=== PATIENT | female | born 2000 | race Caucasian/White ===

== ENCOUNTER 2020-09-16 20:05 | Emergency (ER) | payer MEDICAID, SELFPAY ==
[~2020-09-16] VITALS: Ht 157.5 cm; Wt 68.0 kg
[2020-09-16 20:42] VITALS: BP_SYST 134
--- NOTE | 2020-09-16 20:42 | NUR ---
Pt cough, fever and body aches x 1 day. Took tylenol at 1800 hrs. Pt is 18 weeks , G1, P0, LMP 04/27/2020. Pt had a positive Covid test on 09/10/2020. Patient symptoms have not been worsening, was prompted to come to the ED secondary to persistent symptoms. Denied any abdominal pain or cramping, vaginal bleeding or discharge, denies urinary symptoms. Denied nausea, vomiting, diarrhea. Denied chest pain, cough, shortness of breath, palpitations. Pt breathing easy, unlabored. Pt ambulatory with ambulatory gait.
--- NOTE | 2020-09-16 20:48 | NUR ---
REBECCA Mchugh in the tent examining patient.
[2020-09-16 20:55] VITALS: BP_SYST 132
--- NOTE | 2020-09-16 20:55 | NUR ---
Patient given written and verbal discharge instructions by Dr Templeton and verbalizes understanding. ER MD discussed with patient the care provided. Patient in stable condition. ID arm band removed. Rx of Azithromycin 500 mg and Dexamethasone given. Patient educated on pain management and to follow up with PMD by Dr Templeton. Pain Scale 0/10. Opportunity for questions provided and answered.
== END 2020-09-16 20:55 | disposition home or self-care (01) ==
LOC: SED 20:05
DX: O26.892 Other specified pregnancy related conditions, second trimester (principal); U07.1 COVID-19; Z3A.18 18 weeks gestation of pregnancy
CPT/HCPCS: 99283

== ENCOUNTER 2020-09-18 16:59 | Emergency (ER) | payer MEDICAID, SELFPAY ==
[~2020-09-18] VITALS: Ht 157.5 cm; Wt 114.3 kg
--- NOTE | 2020-09-18 17:00 | NUR ---
Patient triaged and placed in waiting room. VSS and patient appears in no acute distress at this time. Accompanied by self , awaiting available bed, and MD notified of need for MSE.
--- NOTE | 2020-09-18 17:10 | NUR ---
Pt brought by self, A&Ox4, pt presents to ER with abdominal pain/nausea after taking dexamethasone and azythromycin for covid, pt also c/o episod eof vaginal bleeding yesterday, skin pink and warm, respirations even and unlabored, cap refill <3.
[2020-09-18 17:18] VITALS: BP_SYST 158
--- NOTE | 2020-09-18 17:24 | NUR ---
Dr Arreguin evaluating patient in the tent
--- NOTE | 2020-09-18 17:45 | NUR ---
[facility] notified ,pt needs ultrasound
[2020-09-18 17:51] LABS: BASOPHILS % (AUTO) 0.2 % (0.0-2.0); EOSINOPHILS % (AUTO) 0.2 % (0.0-4.0); HEMATOCRIT 41.5 % (36-48); HEMOGLOBIN 14.1 g/dL (12.0-16.0); LYMPHOCYTES % (AUTO) 15.5 % (20.5-51.5); MEAN CORPUSCULAR HEMOGLOBIN 32 pg (27-31); MEAN CORPUSCULAR HGB CONC 34 % (32-36); MEAN CORPUSCULAR VOLUME 95 fL (79.0-98.0); MONOCYTES # (AUTO) 0.4 K/uL (0.0-1.0); MONOCYTES % (AUTO) 6.9 % (1.7-9.3); NEUTROPHILS # (AUTO) 4.8 K/uL (1.8-7.7); NEUTROPHILS % (AUTO) 77.2 % (40.0-70.0); PLATELET COUNT (AUTO) 301 K/uL (130-430); RED BLOOD CELL COUNT(AUTO) 4.37 MIL/uL (4.2-6.2); RED CELL DISTRIBUTION WIDTH 13.4 % (9.0-15.0); WHITE BLOOD COUNT (AUTO) 6.2 K/uL (4.8-10.8)
--- NOTE | 2020-09-18 18:00 | NUR ---
Urine sample sent to lab as per MD order.
[2020-09-18 18:33] LABS: CREATININE 0.61 mg/dL (0.55-1.30)
[2020-09-18 18:37] LABS: BILIRUBIN,URINE NEGATIVE (NEGATIVE); BLOOD, URINE 2+ (NEGATIVE); CLARITY/URINE SL CLOUDY (CLEAR); COLOR,URINE YELLOW (YELLOW); GLUCOSE,URINE NEGATIVE (NEGATIVE); KETONES,URINE NEGATIVE (NEGATIVE); LEUKOCYTE ESTERASE ,URINE 2+ (NEGATIVE); NITRITE, URINE NEGATIVE (NEGATIVE); PROTEIN URINE TRACE (NEGATIVE)
[2020-09-18 18:43] LABS: BACTERIA,URINE None Seen /HPF (None Seen)
[2020-09-18 18:44] LABS: TRICHOMONAS,URINE None Seen /HPF (None Seen); YEAST,URINE None Seen /HPF (None Seen)
--- NOTE | 2020-09-18 18:55 | NUR ---
Patient transported to radiology via wheelchair, accompanied by staff.
[2020-09-18 19:00] LABS: TOTAL BILIRUBIN 0.2 mg/dL (0.0-1.0)
--- NOTE | 2020-09-18 19:04 | NUR ---
Care of patient endorsed to LOGAN Clinton. Pt currently in [place]
[2020-09-18 19:47] VITALS: BP_SYST 132
--- NOTE | 2020-09-18 19:47 | NUR ---
Patient given written and verbal discharge instructions and verbalizes understanding. ER MD discussed with patient the results and treatment provided. Patient in stable condition. ID arm band removed. Rx of PEPCID AND MACROBID given. Patient educated on pain management and to follow up with PMD. Pain Scale 0/10 Opportunity for questions provided and answered. Medication side effect fact sheet provided.
== END 2020-09-18 19:47 | disposition home or self-care (01) ==
LOC: SED 16:59
DX: O23.42 Unspecified infection of urinary tract in pregnancy, second trimester (principal); O26.892 Other specified pregnancy related conditions, second trimester; R10.9 Unspecified abdominal pain; Z3A.18 18 weeks gestation of pregnancy
CPT/HCPCS: 36415; 76805-TC; 80053; 81000-TC; 84702-TC; 85025; 86901; 87086; 99284

== ENCOUNTER 2021-01-21 13:11 | Inpatient (IN) | payer MEDICAID, SELFPAY ==
[~2021-01-21] VITALS: Ht 157.5 cm; Wt 124.3 kg
[2021-01-21] MEDS: LR 1,000 ML IV SCH ×2 (13:00→17:02)
[2021-01-21] MEDS ORDERED: MORPHINE 4 MG INJ. 4 MG/ML VIAL IVP PRN (14:00)
[2021-01-21] MEDS ORDERED: MORPHINE SULFATE 10 MG/ML VIAL IVP PRN ×2 (16:00→16:15)
[2021-01-21] MEDS ORDERED: MORPHINE SULFATE 10 MG/ML VIAL IVP ONE (17:00)
[2021-01-21] MEDS ORDERED: LR 1,000 ML IV.SOLN IV ONE (17:00)
[2021-01-21] MEDS ORDERED: NS IRRIG SOLN 1000 ML IR ONE (17:00)
[2021-01-21] MEDS ORDERED: CEFAZOLIN 2 GM IVPB PREMIX 50 ML IV ONE (17:00)
[2021-01-21] MEDS ORDERED: METOCLOPRAMIDE HCL 10 MG/2 ML VIAL IVP ONE (17:00)
[2021-01-21] MEDS ORDERED: LIDOCAINE 2%, 20 ML MDV INJ ONE (17:00)
[2021-01-21] MEDS ORDERED: OXYTOCIN/0.9 % SODIUM CHLORIDE 20 UNITS/1,000 ML BAG IV ONE (17:00)
[2021-01-21] MEDS ORDERED: DEXAMETHASONE SOD PHOSPHATE 4 MG/ML VIAL IVP ONE (17:00)
[2021-01-21] MEDS ORDERED: TERBUTALINE SULFATE 1 MG/ML VIAL SUBCUT ONE (18:00)
[2021-01-21] MEDS ORDERED: LR 1,000 ML IV SCH (18:00)
[2021-01-21] MEDS ORDERED: AMPICILLIN SODIUM 2 GM in NS 100 ML IV ONE (18:00)
[2021-01-21] MEDS ORDERED: AMPICILLIN SODIUM 2 GM VIAL ONE (18:17)
[2021-01-21 18:33] LABS: BASOPHILS % (AUTO) 0.1 % (0.0-2.0); EOSINOPHILS % (AUTO) 0.3 % (0.0-4.0); HEMATOCRIT 37.6 % (36-48); HEMOGLOBIN 12.8 g/dL (12.0-16.0); MEAN CORPUSCULAR HEMOGLOBIN 33 pg (27-31); MEAN CORPUSCULAR HGB CONC 34 % (32-36); MEAN CORPUSCULAR VOLUME 95 fL (79.0-98.0); MONOCYTES # (AUTO) 0.6 K/uL (0.0-1.0); MONOCYTES % (AUTO) 5.8 % (1.7-9.3); NEUTROPHILS # (AUTO) 8.3 K/uL (1.8-7.7); NEUTROPHILS % (AUTO) 83.8 % (40.0-70.0); PLATELET COUNT (AUTO) 251 K/uL (130-430); RED BLOOD CELL COUNT(AUTO) 3.94 MIL/uL (4.2-6.2); RED CELL DISTRIBUTION WIDTH 14.7 % (9.0-15.0)
[2021-01-21] MEDS: NALBUPHINE HCL 10 MG/ML AMP IVP PRN (19:46)
[2021-01-21 19:57] LABS: BILIRUBIN,URINE NEGATIVE (NEGATIVE); BLOOD, URINE 3+ (NEGATIVE); CLARITY/URINE SL CLOUDY (CLEAR); COLOR,URINE RED (YELLOW); GLUCOSE,URINE NEGATIVE (NEGATIVE); KETONES,URINE 2+ (NEGATIVE); LEUKOCYTE ESTERASE ,URINE 3+ (NEGATIVE); NITRITE, URINE NEGATIVE (NEGATIVE); PROTEIN URINE 1+ (NEGATIVE); UROBILINOGEN,URINE 0.2 (0.2-1.0)
[2021-01-21 20:30] LABS: BACTERIA,URINE MANY /HPF (None Seen); MUCUS,URINE 1+ /LPF (None Seen); WBC,URINE >100 /HPF (0-3)
[2021-01-21] MEDS ORDERED: AMPICILLIN SODIUM 1 GM VIAL ONE (21:58)
[2021-01-21] MEDS: AMPICILLIN SODIUM 1 GM in NS 50 ML IV SCH (22:04)
[2021-01-22] MEDS: NALBUPHINE HCL 10 MG/ML AMP IVP PRN (00:57)
[2021-01-22] MEDS ORDERED: AMPICILLIN SODIUM 1 GM VIAL ONE ×2 (01:38→05:37)
[2021-01-22] MEDS: LR 1,000 ML IV SCH ×2 (02:06→09:13)
[2021-01-22] MEDS: AMPICILLIN SODIUM 1 GM in NS 50 ML IV SCH ×4 (02:07→14:57)
[2021-01-22] MEDS ORDERED: NALBUPHINE HCL 10 MG/ML AMP IVP PRN (02:15)
[2021-01-22] MEDS ORDERED: NALOXONE HCL 0.4 MG/ML AMP (NARCAN) IVP PRN ×4 (02:15→17:45)
[2021-01-22] MEDS ORDERED: MORPHINE SULFATE 10 MG/ML VIAL IVP PRN (02:15)
[2021-01-22] MEDS ORDERED: ONDANSETRON HCL 4 MG/2 ML VIAL IVP PRN ×3 (02:45→17:45)
[2021-01-22 03:47] VITALS: BP_SYST 95
[2021-01-22] MEDS ORDERED: ROPIVACAINE HCL/PF 0.2% 200 ML ONE (07:49)
[2021-01-22] MEDS ORDERED: fentaNYL CITRATE/PF 100 MCG/2 ML AMP ONE (07:50)
[2021-01-22] MEDS ORDERED: FENT2mCg/mL-ROPIVA0.2%/NS EPID 200 ML EP SCH (11:00)
[2021-01-22] MEDS ORDERED: DIPHENHYDRAMINE INJ 50 MG/ML VIAL IVP PRN ×2 (11:00→17:45)
[2021-01-22] MEDS ORDERED: OXYTOCIN/0.9 % SODIUM CHLORIDE 1,000 ML IV SCH (11:30)
[2021-01-22] MEDS ORDERED: CEFAZOLIN 2 GM IVPB PREMIX 50 ML IV ONE (16:00)
[2021-01-22] MEDS ORDERED: OXYTOCIN/0.9 % SODIUM CHLORIDE 1,000 ML IV ONE (17:00)
[2021-01-22] MEDS ORDERED: ANUSOL 1 EA SUPP.RECT (PREPARATION H) RC PRN (17:00)
[2021-01-22] MEDS ORDERED: MEASLES,MUMPS&RUBELLA VACC/PF 12500 UNIT/0.5 ML VIAL SUBQ PRN (17:00)
[2021-01-22] MEDS ORDERED: BISACODYL 10 MG/SUPPOSITORY RC PRN (17:00)
[2021-01-22] MEDS ORDERED: OXYCODONE/ACETAMINOPHEN 5-325 TABLET PO PRN ×2 (17:00)
[2021-01-22] MEDS ORDERED: LANOLIN 7 GM OINT. TP PRN (17:00)
[2021-01-22] MEDS ORDERED: KETOROLAC TROMETHAMINE 30 MG VIAL IVP PRN (17:00)
[2021-01-22] MEDS ORDERED: MEPERIDINE HCL/PF 25 MG/ML DISP.SYRIN IVP PRN ×2 (17:45)
[2021-01-22] MEDS ORDERED: DIPHENHYDRAMINE HCL 50 MG CAPSULE PO PRN (17:45)
[2021-01-22] MEDS ORDERED: LR 1,000 ML IV SCH (17:45)
[2021-01-22] MEDS ORDERED: HYDROmorphone 2 MG/ML VIAL IVP PRN ×2 (17:45)
[2021-01-22] MEDS ORDERED: MORPHINE SULFATE 10MG/10ML PF AMP EP SCH (17:45)
[2021-01-22] MEDS ORDERED: KETOROLAC TROMETHAMINE 60 MG/2 ML VIAL IM PRN (17:45)
[2021-01-22] MEDS ORDERED: MORPHINE 4 MG INJ. 4 MG/ML VIAL IVP PRN ×2 (17:45)
[2021-01-22] MEDS ORDERED: HYDROmorphone 1 MG/ML INJ. CARTRIDGE IVP PRN (17:45)
[2021-01-22] MEDS ORDERED: NALOXONE HCL 1 MG in NACL 0.9% 1,000 ML IV PRN ×4 (17:45)
[2021-01-22 17:58] VITALS: BP_SYST 134
[2021-01-22] MEDS ORDERED: MEASLES,MUMPS&RUBELLA VACC/PF 12500 UNIT/0.5 ML VIAL SUBQ ONE (19:00)
[2021-01-22] MEDS ORDERED: SENNOSIDES/DOCUSATE SODIUM 1 TAB TABLET(SENOKOT-S) PO SCH (21:00)
[2021-01-22] MEDS ORDERED: TEMAZEPAM 15 MG CAPSULE PO PRN (21:00)
[2021-01-23 07:19] LABS: BASOPHILS % (AUTO) 0.1 % (0.0-2.0); HEMATOCRIT 29.1 % (36-48); HEMOGLOBIN 9.7 g/dL (12.0-16.0); LYMPHOCYTES # (AUTO) 1.1 K/uL (1.0-5.5); LYMPHOCYTES % (AUTO) 10.4 % (20.5-51.5); MEAN CORPUSCULAR HEMOGLOBIN 32 pg (27-31); MEAN CORPUSCULAR HGB CONC 33 % (32-36); MEAN CORPUSCULAR VOLUME 96 fL (79.0-98.0); MONOCYTES # (AUTO) 0.8 K/uL (0.0-1.0); MONOCYTES % (AUTO) 7.3 % (1.7-9.3); NEUTROPHILS # (AUTO) 8.9 K/uL (1.8-7.7); NEUTROPHILS % (AUTO) 82.2 % (40.0-70.0); PLATELET COUNT (AUTO) 219 K/uL (130-430); RED BLOOD CELL COUNT(AUTO) 3.02 MIL/uL (4.2-6.2); RED CELL DISTRIBUTION WIDTH 14.6 % (9.0-15.0); WHITE BLOOD COUNT (AUTO) 10.9 K/uL (4.8-10.8)
[2021-01-23] MEDS: DOCUSATE SODIUM 100 MG CAPSULE PO SCH (10:01)
[2021-01-23] MEDS: SIMETHICONE 80 MG TAB.CHEW PO PRN ×3 (10:01→22:15)
[2021-01-23] MEDS: OXYCODONE/ACETAMINOPHEN 5-325 TABLET PO PRN ×2 (15:08→19:10)
[2021-01-23] MEDS: IBUPROFEN 800 MG TABLET PO PRN (18:09)
[2021-01-24] MEDS: IBUPROFEN 800 MG TABLET PO PRN ×5 (00:01→23:50)
[2021-01-24] MEDS: OXYCODONE/ACETAMINOPHEN 5-325 TABLET PO PRN ×3 (03:07→20:38)
[2021-01-24] MEDS: SIMETHICONE 80 MG TAB.CHEW PO PRN (17:49)
[2021-01-24] MEDS: DOCUSATE SODIUM 100 MG CAPSULE PO SCH (22:13)
[2021-01-25] MEDS: OXYCODONE/ACETAMINOPHEN 5-325 TABLET PO PRN ×2 (03:48→09:09)
[2021-01-25] MEDS: SIMETHICONE 80 MG TAB.CHEW PO PRN (09:10)
[2021-01-25] MEDS: IBUPROFEN 800 MG TABLET PO PRN (12:35)
== END 2021-01-25 17:10 | disposition home or self-care (01) | DRG 540 ==
LOC: SPU 13:11
PROVIDERS: ADMIT Obstetrics & Gynecology; ATTEND Obstetrics & Gynecology
PROC: 10D00Z1 Extraction of Products of Conception, Low, Open Approach (ICD-10-PCS; principal; 2021-01-22 16:30)
DX: O62.0 Primary inadequate contractions (principal); O24.429 Gestational diabetes mellitus in childbirth, unspecified control; Z3A.37 37 weeks gestation of pregnancy; Z37.0 Single live birth; Z20.822 Contact with and (suspected) exposure to COVID-19
CPT/HCPCS: 36415; 76805-TC; 81000; 82947; 85025; 86592; 86886; 86900; 86901; 87086; J0290; J0690; J1100; J1885; J2001; J2270; J2300; J2405; J2590; J2765; J3010; J7120

== ENCOUNTER 2021-01-31 08:49 | Emergency (ER) | payer MEDICAID, SELFPAY ==
[~2021-01-31] VITALS: Ht 157.5 cm; Wt 124.7 kg
[2021-01-31 08:56] VITALS: BP_SYST 139
[2021-01-31 09:33] LABS: BASOPHILS % (AUTO) 0.2 % (0.0-2.0); EOSINOPHILS # (AUTO) 0.1 K/uL (0.0-0.4); EOSINOPHILS % (AUTO) 0.9 % (0.0-4.0); HEMATOCRIT 31.9 % (36-48); HEMOGLOBIN 10.8 g/dL (12.0-16.0); LYMPHOCYTES # (AUTO) 1.1 K/uL (1.0-5.5); LYMPHOCYTES % (AUTO) 11.2 % (20.5-51.5); MEAN CORPUSCULAR HEMOGLOBIN 32 pg (27-31); MEAN CORPUSCULAR HGB CONC 34 % (32-36); MEAN CORPUSCULAR VOLUME 95 fL (79.0-98.0); MONOCYTES # (AUTO) 0.5 K/uL (0.0-1.0); MONOCYTES % (AUTO) 5.3 % (1.7-9.3); NEUTROPHILS # (AUTO) 8.4 K/uL (1.8-7.7); NEUTROPHILS % (AUTO) 82.4 % (40.0-70.0); PLATELET COUNT (AUTO) 579 K/uL (130-430); RED BLOOD CELL COUNT(AUTO) 3.36 MIL/uL (4.2-6.2); RED CELL DISTRIBUTION WIDTH 14.1 % (9.0-15.0); WHITE BLOOD COUNT (AUTO) 10.2 K/uL (4.8-10.8)
[2021-01-31 09:35] LABS: BLOOD, URINE 3+ (NEGATIVE); COLOR,URINE RED (YELLOW); GLUCOSE,URINE NEGATIVE (NEGATIVE); KETONES,URINE NEGATIVE (NEGATIVE); LEUKOCYTE ESTERASE ,URINE 3+ (NEGATIVE); NITRITE, URINE POSITIVE (NEGATIVE); PROTEIN URINE 2+ (NEGATIVE)
[2021-01-31 09:38] LABS: CLARITY/URINE HAZY (CLEAR)
[2021-01-31 09:40] LABS: BILIRUBIN,URINE NEGATIVE (NEGATIVE)
[2021-01-31 09:42] LABS: CALCIUM 8.9 mg/dL (8.4-11.0); CREATININE 0.81 mg/dL (0.55-1.30); POTASSIUM 3.8 mmol/L (3.5-5.1)
[2021-01-31 09:44] LABS: BACTERIA,URINE MANY /HPF (None Seen); RBC,URINE 20-50 /HPF (0-3); WBC,URINE 20-50 /HPF (0-3)
[2021-01-31 09:47] LABS: ALBUMIN 2.4 g/dL (3.4-4.8); TOTAL BILIRUBIN 0.3 mg/dL (0.0-1.0)
[2021-01-31] MEDS ORDERED: CEPH250C PO (10:24)
[2021-01-31 10:30] VITALS: BP_SYST 139
== END 2021-01-31 10:31 | disposition home or self-care (01) ==
LOC: SED 08:49
DX: O86.20 Urinary tract infection following delivery, unspecified (principal); O86.4 Pyrexia of unknown origin following delivery; Z79.899 Other long term (current) drug therapy
CPT/HCPCS: 36415; 80053; 81000; 83605; 85025; 87040-TC; 87086; 99283

== ENCOUNTER 2021-11-25 21:22 | Emergency (ER) | payer MEDICAID ==
[~2021-11-25] VITALS: Ht 157.5 cm; Wt 90.7 kg
[~2021-11-25 21:22] MED LIST: CEPH250C PO
[2021-11-25 21:31] VITALS: BP_SYST 125
--- NOTE | 2021-11-25 21:38 | NUR ---
Patient to ER bed 04 to gown for evaluation. Side rails up. Report given to LOGAN AUGUST
--- NOTE | 2021-11-25 21:45 | NUR ---
Pt is a 19 year old F who brought self in to ER for a wound check. Hx of 9 months ago but continues to have leakage out of her site. Patient has been using peroxide on a daily basis with poor wound healing. Denies any pain to site and is Afebrile. Appears in no acute distress at this time.
[2021-11-25 22:57] VITALS: BP_SYST 125
--- NOTE | 2021-11-25 22:59 | NUR ---
Patient given written and verbal discharge instructions and verbalizes understanding. ER MD discussed with patient the results and treatment provided. Patient in stable condition. ID arm band removed. Patient educated on diagnosis and to follow up with PMD. Pain Scale 0/10. Opportunity for questions provided and answered. Medication side effect fact sheet provided.
== END 2021-11-25 22:57 | disposition home or self-care (01) ==
LOC: SED 21:22
DX: Z48.01 Encounter for change or removal of surgical wound dressing (principal); E66.01 Morbid (severe) obesity due to excess calories; Z79.899 Other long term (current) drug therapy
CPT/HCPCS: 99281